=== PATIENT | female | born 1995 | race Caucasian/White ===

== ENCOUNTER 2017-02-21 21:57 | Emergency (ER) | payer OTHER ==
[~2017-02-21] VITALS: Ht 177.8 cm; Wt 55.9 kg
[2017-02-21 22:00] VITALS: TEMP 37.3; Ht 177.8 cm; Wt 55.9 kg
[2017-02-21 22:02] VITALS: O2SAT 98
[2017-02-21 23:55] VITALS: BP 118/77; PULSE 82; O2SAT 98
--- NOTE | 2017-02-22 04:47 | EMERGENCY ROOM VISIT NOTE ---
History First contact with patient: 21:58 Chief Complaint: CARBON MONOXIDE EXPOSURE Stated Complaint: CO2 History of Present Illness The patient is a 21 year old female who presents to the Emergency Room with complaints of possible exposure to carbon monoxide today. There was a carbon monoxide leak in the apartment complex. The fire department was notified. She's been in the department for a few hours. Patient denies chest pain, dyspnea, fever, chills, headache, leg numbness, dizziness, vision problems. No other concerns per patient. Review of Systems See HPI for pertinent positives & negatives. A total of 10 systems reviewed and were otherwise negative. Past Medical/Surgical History Asthma Social History Smoking Status: Never Smoker Smokeless Tobacco Use: No Drug Use: none Occupation Status: [employer] student Current/Historical Medications No Active Prescriptions or Reported Meds Physical Exam Vital Signs Date Time Temp Pulse Resp B/P (MAP) Pulse Ox O2 Delivery O2 Flow Rate FiO2 02/21/17 23:55 82 16 118/77 98 02/21/17 23:14 69 16 137/84 99 Non-Rebreather 5.0 02/21/17 22:02 98 Non-Rebreather 5.0 02/21/17 22:00 37.3 88 18 133/81 97 Room Air 02/21/17 22:00 97 Room Air 02/21/17 22:00 97 Room Air 02/21/17 22:00 97 Room Air Physical Exam VITALS: Vitals are noted on the nurse's note and reviewed by myself. Vital signs stable. GENERAL: Pleasant female, in no acute distress, nondiaphoretic, well-developed well-nourished. SKIN: The skin was without rashes, erythema, edema, or bruising. There is no tenting of the skin. Capillary reflex less than 2 seconds. HEAD: Normocephalic atraumatic. EARS: External auditory canals clear, tympanic membranes pearly anderson without erythema or effusion bilaterally. EYES: Pupils equal round and reactive to light and accommodation. Conjunctivae without injection, sclerae without icterus. Extraocular movements intact. NOSE: Patent, turbinates without inflammation or discharge. MOUTH: Mucous membranes moist. Pharynx without erythema or exudate. Uvula midline. Airway patent. Tongue does not deviate. NECK: Supple without nuchal rigidity. No lymphadenopathy. No thyromegaly. Cervical spine is nontender. No JVD. HEART: Regular rate and rhythm without murmurs gallops or rubs. LUNGS: Clear to auscultation bilaterally without wheezes, rales or rhonchi. No dullness to percussion. No retractions or accessory muscle use. ABDOMEN: Positive bowel sounds x 4. Normal tympanic percussion. Soft, nontender, without masses or organomegaly. Mojica sign negative. No guarding or rebound tenderness. MUSCULOSKELETAL: No muscle atrophy, erythema, or edema noted. NEURO: Patient was alert and oriented to person place and time. Normal sensation to light and sharp touch. No focal neurological deficits. Medical Decision & Procedures Laboratory Results Test 02/21/17 22:40 Carboxyhemoglobin 0.1 % [facility] ED Course Prior records reviewed and summarized as above. Triage Nursing notes reviewed. The patient's history was concerning for possible carbon monoxide exposure. Differential diagnosis: Etiologies such as carbon monoxide poisoning, respiratory problem, electrolyte abnormality, chemical exposure, as well as others were entertained.. Physical examination: As above ER treatment provided: Patient was observed On reassessment the patient felt better. Diagnostics interpreted by me: The labs revealed normal carbon monoxide level This appears to be exposure to carbon monoxide. The fire department and apartment complex state that the patient is safe to be returned back to the department. The areas of concern have been evacuated and housing arrangements for the parents have been arranged by the apartment complex. Patient was neurovascularly and neurologically intact. She is well-appearing. Stable vital signs. She was given information on carbon monoxide exposure and advised to follow-up health services in a few days or here in the ER sooner for headache , fatigue, lightheadedness, dizziness, worsening signs or symptoms or as needed. By the evaluation outlined above emergent etiologies such as carbon monoxide poisoning as well as others were deemed relatively unlikely. The pt informed about the findings as listed above. All questions were answered and pleased with the treatment. Return instructions were outlined and the patient was discharged in stable condition. Referral: The patient was referred back to primary care physician for follow-up in 2 to 3 days for a recheck of the current condition. Case reviewed with my attending Medical Decision as above Medication Reconcilliation Current Medication List: was personally reviewed by me Blood Pressure Screening Patient's blood pressure: Normal blood pressure Impression Primary Impression: Exposure to carbon monoxide Departure Information Dispostion Home / Self-Care Condition GOOD Prescriptions No Active Prescriptions or Reported Meds Referrals [facility] (PCP) Forms HOME CARE DOCUMENTATION FORM, IMPORTANT VISIT INFORMATION Patient Instructions [facility] [place] Poisoning Additional Instructions Your safe to return home. We verified this with the apartment complex and the fire department. Rest and drink plenty of fluids as tolerated. Continue current medications. Return to the ER immediately for headache, confusion, lethargy, abdominal pain, vomiting, fevers, chest pains, difficulty breathing, worsening of your condition , or as needed. Follow up with health services in 2-3 days for a recheck of your current condition.
== END 2017-02-22 00:06 | disposition home or self-care (01) ==
LOC: C.EDC 21:59
DX: Z77.29 Contact with and (suspected) exposure to other hazardous substances (principal); J45.909 Unspecified asthma, uncomplicated